=== PATIENT | female | born 1950 | race American Indian/Alaskan Native ===

== ENCOUNTER 2016-10-16 10:11 | Day surgery (SDC) | payer MEDICARE ==
[2016-10-16 10:22] VITALS: BMI 34.0
[2016-10-16 10:51] LABS: ADD MANUAL DIFF? NO
[2016-10-16 10:59] LABS: BASO # 0.02 K/mm3 (0.0-2.0); BASO % 0.3 % (0.0-3.0); EOS # 0.1 (0.0-0.7); EOS % 1.4 % (1.5-5.0); GRAN # 4.09 (1.4-6.5); GRAN % 62.2 % (50.0-68.0); HEMATOCRIT 40.6 % (36.0-48.0); LYMPH # 1.9 (1.2-3.4); LYMPH % 29.3 % (22.0-35.0); MEAN CELL VOLUME 94.6 fL (80.0-105.0); MEAN CORPUSCULAR HEMOGLOBIN 31.5 pg (25.0-35.0); MEAN CORPUSCULAR HGB CONC 33.3 g/dl (31.0-37.0); MEAN PLATELET VOLUME 9.8 fl (7.0-11.0); MONO # 0.5 (0.1-0.6); MONO % 6.8 % (1.0-6.0); PLATELET COUNT 221 10^3/uL (120.0-450.0); RED CELL DISTRIBUTION WIDTH 14.1 % (11.5-14.5); WHITE BLOOD COUNT 6.6 10^3/ul (4.5-11.0)
[2016-10-16 11:05] LABS: CALCIUM 9.6 mg/dL (8.4-10.5); INR 1.06 (0.93-1.08); PARTIAL THROMBOPLASTIN TIME 25.2 Seconds (23.7-30.8); POTASSIUM 5.1 mmol/L (3.6-5.0)
[2016-10-16] MEDS ORDERED: Lidocaine 2% Inj (20ml) ONE (11:37)
[2016-10-16] MEDS ORDERED: Nitroglycerin 50mg in D5W 50 MG/250 ML BOTTLE IV ONE (11:38)
[2016-10-16] MEDS ORDERED: Iodixanol 320 mg/ml 150 ml Bottle IV ONE ×2 (11:38→12:24)
[2016-10-16] MEDS ORDERED: Midazolam 2 MG/2 ML VIAL ONE (12:05)
[2016-10-16 13:48] VITALS: BP 115/50; PULSE 75; RESP 18; TEMP 97.8; O2SAT 99
--- NOTE | 2016-10-16 14:13 | VASCULAR ---
PROCEDURE: 1. Left upper extremity AV fistula angiogram 2. Left cephalic vein angioplasty HISTORY: End-stage renal disease. Malfunctioning AV access PHYSICIAN(S): Alex Alamo MD. TECHNIQUE: The relative risks and indications of the procedure were explained to the patient and consent obtained. The patient was placed supine on the angiography table and the left arm prepped and draped in usual sterile fashion. Conscious sedation and monitoring provided throughout the procedure by a nurse. The left arm AV fistula was punctured near the elbow in an antegrade direction with a micropuncture set. A 5 Namibian catheter was placed. An overlapping left upper extremity AV fistula angiogram was performed. Central venous imaging was obtained. Pressure was applied near the access site and reflux of the arterial anastomosis performed. A 6 Namibian sheath was placed at the puncture site. Exchange is made for 0.035 support wire. The proximal left cephalic vein was dilated with an 8 mm balloon. Balloon ruptured with spasm of the vessel. A prolonged inflation with a 7 mm balloon was performed. The sheath was removed and hemostasis obtained. FINDINGS: The patient's left brachial-cephalic fistula is patent. Mild pseudoaneurysms are noted proximally. The left cephalic vein is well developed. Collaterals are seen at the junction of the left cephalic vein and left subclavian vein. There is a web-like stenosis of the left cephalic vein. The left subclavian vein, left innominate vein, and SVC are widely patent. The arterial anastomosis is widely patent. IMPRESSION: 1. Web-like stenosis of the proximal left cephalic vein 2. Venous angioplasty of the left cephalic vein proximally. 3. Patent arterial anastomosis
== END 2016-10-16 15:00 | disposition home or self-care (01) ==
LOC: SDSVAS 10:11
PROVIDERS: ATTEND Radiology Vascular & Interventional Radiology
DX: T82.858A Stenosis of other vascular prosthetic devices, implants and grafts, initial encounter (principal); I12.0 Hypertensive chronic kidney disease with stage 5 chronic kidney disease or end stage renal disease; N18.6 End stage renal disease; E11.22 Type 2 diabetes mellitus with diabetic chronic kidney disease
CPT/HCPCS: 36415; 36902; 80048; 85025; 85610; 85730; 99152; C1725 ×2; C1760; C1769 ×2; C1894; J1644; J2250; J3010

== ENCOUNTER 2017-05-19 07:32 | Day surgery (SDC) | payer MEDICARE ==
[2017-05-19 08:32] VITALS: RESP 18
[2017-05-19 08:37] LABS: BASO # 0.02 K/mm3 (0.0-2.0); BASO % 0.3 % (0.0-3.0); EOS # 0.2 (0.0-0.7); EOS % 2.5 % (1.5-5.0); GRAN # 3.99 (1.4-6.5); GRAN % 65.4 % (50.0-68.0); LYMPH # 1.5 (1.2-3.4); LYMPH % 25.1 % (22.0-35.0); MEAN CELL VOLUME 93.8 fl (80.0-105.0); MEAN CORPUSCULAR HEMOGLOBIN 30.4 pg (25.0-35.0); MEAN CORPUSCULAR HGB CONC 32.4 g/dl (31.0-37.0); MEAN PLATELET VOLUME 10.5 fl (7.0-11.0); MONO # 0.4 (0.1-0.6); MONO % 6.7 % (1.0-6.0); RED CELL DISTRIBUTION WIDTH 14.1 % (11.5-14.5); WHITE BLOOD COUNT 6.1 10^3/ul (4.5-11.0)
[2017-05-19 08:46] LABS: INR 1.01 (0.93-1.08); PARTIAL THROMBOPLASTIN TIME 31.3 Seconds (25.1-36.5)
[2017-05-19 09:07] LABS: CALCIUM 9.1 mg/dL (8.4-10.5); POTASSIUM 4.7 mmol/L (3.6-5.0)
[2017-05-19] MEDS ORDERED: Iodixanol 320 mg/ml 150 ml Bottle IV ONE (09:30)
[2017-05-19] MEDS ORDERED: Lidocaine 2% Inj (20ml) ONE (09:30)
[2017-05-19] MEDS ORDERED: Nitroglycerin 50mg in D5W 50 MG/250 ML BOTTLE IV ONE (09:30)
[2017-05-19] MEDS ORDERED: Midazolam 2 MG/2 ML VIAL ONE (09:58)
[2017-05-19 11:32] VITALS: TEMP 97.3
[2017-05-19] MEDS ORDERED: Oxycodone/Acetaminophen 5/325 mg Tab PO PRN (11:40)
[2017-05-19 12:00] VITALS: BP 105/47; PULSE 68; O2SAT 95
--- NOTE | 2017-05-19 19:13 | VASCULAR ---
PROCEDURE: 1. Left upper extremity AV fistula angiogram 2. Attempted left cephalic vein angioplasty HISTORY: End-stage renal disease. Malfunctioning AV access PHYSICIAN(S): Alex Alamo MD. TECHNIQUE: The relative risks and indications of the procedure were explained to the patient and consent obtained. The patient was placed supine on the angiography table and the left arm prepped and draped in usual sterile fashion. Conscious sedation and monitoring provided throughout the procedure by a nurse. The left arm AV fistula was punctured near the elbow in an antegrade direction with a micropuncture set. A 5 Beninese catheter was placed. An overlapping left upper extremity AV fistula angiogram was performed. Central venous imaging was obtained. Pressure was applied near the access site and reflux of the arterial anastomosis performed. Exchange was made for a 6 Beninese sheath at the puncture site. The occluded segment of the left cephalic vein proximally was crossed with an angled glidewire and 5 Beninese catheter. Exchange is made for 0.035 support wire. The occluded left cephalic branch was dilated with 7 and 8 mm balloons. A refractory focal segment was encounter. This was subsequently dilated with 7 mm cutting balloon, which was unsuccessful in over common is stenosis. Next an 8 mm noncompliant high-pressure balloon was utilized. The focal stenosis would not successfully dilated 30 atmospheres. Completion angiograms were obtained. The catheter was removed and hemostasis obtained with a purse string suture. FINDINGS: The patient's left brachial - cephalic fistula is patent. 2 stable pseudoaneurysms are noted in the proximal fistula. Due to tortuosity, the anastomosis is not seen in tangent. The left cephalic vein is patent in the forearm. The left cephalic vein above the elbow is patent to the axilla. There is a bifid insertion of the left cephalic vein which was previously dilated. One of the 2 insertions is occluded. The left axillary vein, left subclavian vein, left innominate vein, and SVC are patent. IMPRESSION: 1. Occluded bifid insertion of the left cephalic vein. 2. Unsuccessful attempt at angioplasty of the left cephalic vein insertion. This included 7 mm cutting balloon any noncompliant balloon dilated to 30 atmospheres. 3. The left upper extremity AV fistula is patent. It can continue to be utilized and hopefully the remaining cephalic insertion will continue to dilate
== END 2017-05-19 13:03 | disposition home or self-care (01) ==
LOC: SDSVAS 07:32
PROVIDERS: ATTEND Radiology Vascular & Interventional Radiology
DX: T82.41XA Breakdown (mechanical) of vascular dialysis catheter, initial encounter (principal); I12.0 Hypertensive chronic kidney disease with stage 5 chronic kidney disease or end stage renal disease; E11.22 Type 2 diabetes mellitus with diabetic chronic kidney disease; N18.6 End stage renal disease; E66.9 Obesity, unspecified; D64.9 Anemia, unspecified
CPT/HCPCS: 36415; 36902; 80048; 85025; 85610; 85730; 99152; 99153; C1725 ×3; C1769 ×3; C1894 ×2; J1644; J2250; J2405; J3010; J7030

== ENCOUNTER 2017-11-10 10:02 | Day surgery (SDC) | payer MEDICARE ==
[2017-11-10 10:34] VITALS: RESP 18
[2017-11-10] MEDS ORDERED: Lidocaine 2% Inj (20ml) ONE (10:49)
[2017-11-10] MEDS ORDERED: Iodixanol 320 mg/ml 150 ml Bottle IV ONE (10:50)
[2017-11-10 10:59] LABS: BASO # 0.02 K/mm3 (0.0-2.0); BASO % 0.3 % (0.0-3.0); EOS # 0.1 (0.0-0.7); EOS % 1.6 % (1.5-5.0); GRAN # 4.99 (1.4-6.5); GRAN % 67.9 % (50.0-68.0); LYMPH # 1.8 (1.2-3.4); LYMPH % 24.3 % (22.0-35.0); MEAN CELL VOLUME 92.3 fl (80.0-105.0); MEAN CORPUSCULAR HEMOGLOBIN 30.4 pg (25.0-35.0); MEAN CORPUSCULAR HGB CONC 32.9 g/dl (31.0-37.0); MEAN PLATELET VOLUME 9.4 fl (7.0-11.0); MONO # 0.4 (0.1-0.6); MONO % 5.9 % (1.0-6.0); RBC 4.28 10^6/uL (3.5-6.1); RED CELL DISTRIBUTION WIDTH 14.1 % (11.5-14.5); WHITE BLOOD COUNT 7.3 10^3/ul (4.5-11.0)
[2017-11-10] MEDS ORDERED: Midazolam 2 MG/2 ML VIAL ONE ×2 (11:00→11:23)
[2017-11-10 11:10] LABS: CALCIUM 7.6 mg/dL (8.4-10.5); INR 0.97 (0.93-1.08); PARTIAL THROMBOPLASTIN TIME 29.5 Seconds (25.1-36.5); PROTHROMBIN TIME 11.2 SECONDS (9.4-12.5)
[2017-11-10] MEDS ORDERED: Iodixanol 320 MG/ML 100 ML BOTTLE IV ONE (12:05)
[2017-11-10] MEDS ORDERED: Oxycodone/Acetaminophen 5/325 mg Tab PO PRN (12:51)
[2017-11-10 13:17] VITALS: TEMP 97.7
[2017-11-10] MEDS ORDERED: Oxycodone/Acetaminophen 5/325 mg Tab ONE (13:25)
[2017-11-10 13:42] VITALS: BP 123/65; PULSE 84; O2SAT 99
--- NOTE | 2017-11-10 19:26 | VASCULAR ---
PROCEDURE: 1. Left upper extremity AV fistula [place] 2. Central left cephalic vein angioplasty and stent graft placement HISTORY: End-stage renal disease. Malfunctioning AV access recurrent central left cephalic vein occlusion PHYSICIAN(S): Alex Alamo MD. TECHNIQUE: The relative risks and indications of the procedure were explained to the patient and consent obtained. The patient was placed supine on the angiography table and the left arm prepped and draped in usual sterile fashion. Conscious sedation and monitoring provided throughout the procedure by a nurse. The right arm AV fistula was punctured under ultrasound guidance near the elbow in an antegrade direction with a micropuncture set. A 5 Rwandan catheter was placed. An overlapping left upper extremity AV fistula angiogram was performed. Central venous imaging was obtained. This revealed a short segment occlusion of the central left cephalic vein. Exchange is made for a 9 Rwandan sheath. With some difficulty the 3 cm occlusion of the left cephalic vein centrally was crossed with the glidewire. 0.018 support wire was placed the IVC. The left cephalic vein centrally was dilated with a 6 mm balloon. A refractory stenosis was present. Subsequent is 7 mm cutting balloon was used. Three inflations were required. Antegrade flow was re-established with a pseudoaneurysm present. A a long inflation with a 10 mm balloon was performed. The pseudoaneurysm still present. Subsequently an 8 mm x 4 cm fluency stent graft was deployed in the left cephalic vein centrally. This was dilated with a 10 mm balloon. Completion angiograms were obtained. The patient tolerated the procedure well. Hemostasis was obtained with a purse string suture. FINDINGS: The patient's left brachial - cephalic fistula is well developed. Once again there is a 3 cm occlusion of the left cephalic vein centrally. This was difficult to cross it was refractory to dilatation, requiring a cutting balloon. There was a pseudoaneurysm present after cutting balloon placement. Subsequently a in 8 mm fluency stent graft was placed. The patient tolerated the procedure well. IMPRESSION: 1. Recurrent occlusion of the left cephalic vein centrally. 2. Successful dilatation of the refractory occlusion with cutting balloon and subsequent stent graft placement.
== END 2017-11-10 14:30 | disposition home or self-care (01) ==
LOC: SDSVAS 10:02
PROVIDERS: ATTEND Radiology Vascular & Interventional Radiology
DX: T82.318A Breakdown (mechanical) of other vascular grafts, initial encounter (principal); I12.0 Hypertensive chronic kidney disease with stage 5 chronic kidney disease or end stage renal disease; N18.6 End stage renal disease; I25.10 Atherosclerotic heart disease of native coronary artery without angina pectoris; Y83.2 Surgical operation with anastomosis, bypass or graft as the cause of abnormal reaction of the patient, or of later complication, without mention of misadventure at the time of the procedure
CPT/HCPCS: 36415; 36903; 80048; 85025; 85610; 85730; 99152; 99153; C1725 ×4; C1760; C1769 ×3; C1894; J1644; J2250; J2405; J3010; Q9967

== ENCOUNTER 2018-05-14 19:54 | Emergency (ER) | payer MEDICARE ==
[2018-05-14 20:05] VITALS: TEMP 97.9; BMI 34.8
--- NOTE | 2018-05-14 20:40 | ED PDOC ---
Arrival/HPI - General Chief Complaint: Weakness/Neurological Deficit Time Seen by Provider: 05/14/18 20:08 Historian: Patient - History of Present Illness Narrative History of Present Illness (Text): 05/14/18 20:40 A 68 year old female, whose past medical history includes Renal disease (on dialysis Thursday, Thursday and Thursday), presents to the emergency department complaining of generalized weakness. Patient reports she had her last dialysis session this morning, however during her session the fistula stopped working and had to be sent out to have it fixed. Afterwards, patient returned and had dialysis completed this morning. However, later on, patient had 2 episodes of vomiting and began experiencing generalized weakness. Now while here in the ER, patient has no complaints at this time except for feeling slightly nauseated. Patient denies any fever, abdominal pain, chest pain, dyspnea on exertion, syncope, dizziness, or any other complaints at this time. PMD: Dr. Anish Owens Past Medical History - Provider Review Nursing Documentation Reviewed: Yes - Infectious Disease Hx of Infectious Diseases: None - Reproductive Menopause: No - Cardiac Hx Pacemaker: No - Pulmonary Hx Respiratory Disorders: No - Neurological Hx Paralysis: No - HEENT Hx HEENT Disorder: No - Renal Hx Dialysis: Yes (mwf) Date of Last Dialysis Treatment: 08/22/16 Hx Renal Failure: Yes Other/Comment: Left Av shunt - Endocrine/Metabolic Hx Endocrine Disorders: Yes Hx Diabetes Mellitus Type 2: Yes - Hematological/Oncological Hx Blood Transfusions: Yes (FEW ON HD(LAST APPROX 10/2014)) Hx Blood Transfusion Reaction: No - Integumentary Hx Dermatological Disorder: No - Musculoskeletal/Rheumatological Hx Musculoskeletal Disorders: No - Gastrointestinal Hx Gastrointestinal Disorders: No - Genitourinary/Gynecological Hx Genitourinary Disorders: Yes Other/Comment: pt states she previously urine retetion, has been resolved - Psychiatric Hx Emotional Abuse: No Hx Physical Abuse: No Hx Substance Use: No - Surgical History Hx Section: Yes - Anesthesia Hx Anesthesia Reactions: No Hx Malignant Hyperthermia: No - Suicidal Assessment Feels Threatened In Home Enviroment: No Family/Social History - Physician Review Nursing Documentation Reviewed: Yes Family/Social History: No Known Family HX Smoking Status: Never Smoked Hx Alcohol Use: No Hx Substance Use: No Allergies/Home Meds Allergies/Adverse Reactions: Allergies No Known Allergies Allergy (Verified 08/22/16 13:23) Home Medications: Home Meds Medication Instructions Recorded Confirmed Calcium Acetate [Phoslo] 667 mg PO ACTID 10/16/16 11/10/17 Aspirin [Ecotrin] 81 mg PO DAILY 05/19/17 11/10/17 Multivitamin [Daily Rashida] 1 tab PO DAILY 05/19/17 11/10/17 glyBURIDE [Glyburide] 5 mg PO DAILY 05/19/17 11/10/17 RX: Simvastatin 10 mg PO DAILY 11/04/17 11/10/17 Review of Systems - Physician Review All systems were reviewed & negative as marked: Yes - Review of Systems Constitutional: absent: Fevers Cardiovascular: absent: Chest Pain, RAINES, Syncope Gastrointestinal: Nausea (slightly), Vomiting (2 episodes this morning). absent: Abdominal Pain Neurological: absent: Dizziness Physical Exam Vital Signs Reviewed: Yes Vital Signs Temp Pulse Resp BP Pulse Ox 05/14/18 20:05 97.9 F 89 18 113/57 L 95 Temperature: Afebrile Blood Pressure: Normal Pulse: Regular Respiratory Rate: Normal Appearance: Positive for: Well-Appearing, Non-Toxic, Comfortable Pain Distress: None Mental Status: Positive for: Alert and Oriented X 3 - Systems Exam Head: Present: Atraumatic, Normocephalic Pupils: Present: PERRL Extroacular Muscles: Present: EOMI Conjunctiva: Present: Normal Mouth: Present: Moist Mucous Membranes Neck: Present: Normal Range of Motion Respiratory/Chest: Present: Clear to Auscultation, Good Air Exchange. No: Respiratory Distress, Accessory Muscle Use Cardiovascular: Present: Regular Rate and Rhythm, Normal S1, S2. No: Murmurs Abdomen: No: Tenderness, Distention, Peritoneal Signs Back: Present: Normal Inspection Upper Extremity: Present: Normal Inspection, Other (AV fistula to left arm). No: Cyanosis, Edema Lower Extremity: Present: Normal Inspection. No: Edema Neurological: Present: GCS=15, CN II-XII Intact, Speech Normal Skin: Present: Warm, Dry, Normal Color. No: Rashes Psychiatric: Present: Alert, Oriented x 3, Normal Insight, Normal Concentration Medical Decision Making ED Course and Treatment: 05/14/18 20:43 Impression: 68 year old female currently having no complaints except for experiencing some nausea. Plan: -- EKG -- Labs -- Zofran -- Reassess and disposition Prior Visits: Notes and results from previous visits were reviewed. Patient was last seen in the emergency department on 08/22/2016 for syncopal episode. Patient was discharged home. Progress Notes: 05/14/18 20:21 EKG: Ordered, reviewed, and independently interpreted the EKG. Rate : 79 BPM Rhythm : NSR Interpretation : Normal access, normal intervals, no ST elevations. Comparison : No previous EKG for comparison. Patient re-evaluated multiple times, each time had no complaints and stated that she felt better. No vomiting while in the ED. BP improved to 105 systolic with no intervention. Patient AAOx3, stable for discharge home. - Lab Interpretations I have reviewed the lab results: Yes - Medication Orders Current Medication Orders: Discontinued Medications Ondansetron HCl (Zofran Inj) 4 mg IM STAT STA Stop: 05/14/18 20:20 - Scribe Statement The provider has reviewed the documentation as recorded by the Arabella Cardenas Provider Scribe Attestation: All medical record entries made by the Scribe were at my direction and personally dictated by me. I have reviewed the chart and agree that the record accurately reflects my personal performance of the history, physical exam, medical decision making, and the department course for this patient. I have also personally directed, reviewed, and agree with the discharge instructions and disposition. Disposition/Present on Arrival - Present on Arrival Any Indicators Present on Arrival: No History of DVT/PE: No History of Uncontrolled Diabetes: No Urinary Catheter: No History of Decub. Ulcer: No History Surgical Site Infection Following: None - Disposition Have Diagnosis and Disposition been Completed?: Yes Diagnosis: Vomiting, Transient hypotension Disposition: HOME/ ROUTINE Disposition Time: 22:15 Condition: STABLE Discharge Instructions (ExitCare): Nausea and Vomiting, Adult (DC), Low Blood Pressure (DC) Additional Instructions: CONNOR MARKHAM, thank you for letting us take care of you today. Your provider was Jhoana Lovelace MD and you were treated for GENERAL WEAKNESS; NAUSEA. The emergency medical care you received today was directed at your acute symptoms. If you were prescribed any medication, please fill it and take as directed. It may take several days for your symptoms to resolve. Return to the Emergency Department if your symptoms worsen, do not improve, or if you have any other problems. Please contact your doctor or call one of the physicians/clinics you have been referred to that are listed on the Patient Visit Information form that is included in your discharge packet. Bring any paperwork you were given at discharge with you along with any medications you are taking to your follow up visit. Our treatment cannot replace ongoing medical care by a primary care provider outside of the emergency department. Thank you for allowing the [facility] team to be part of your care today. If you had an X-Ray or CT scan: A Radiologist will review the ED reading if any change in treatment is needed we will contact you. If you had a blood, urine, or wound culture: It will take several days for the results, if any change in treatment is needed we will contact you. If you had an STI test: It will take 48 hours for the results. Please call after 1 week if you have not heard back. Referrals: Anish Owens MD [Primary Care Provider] - Follow up with primary Forms: [employer] (Afghan)
[2018-05-14 20:44] LABS: BASO # 0.01 K/mm3 (0.0-2.0); BASO % 0.1 % (0.0-3.0); EOS % 0.5 % (1.5-5.0); GRAN # 6.62 (1.4-6.5); GRAN % 85.4 % (50.0-68.0); HEMOGLOBIN 13.1 g/dL (12.0-16.0); LYMPH # 0.8 (1.2-3.4); LYMPH % 9.9 % (22.0-35.0); MEAN CELL VOLUME 92.1 fl (80.0-105.0); MEAN CORPUSCULAR HEMOGLOBIN 30.3 pg (25.0-35.0); MEAN CORPUSCULAR HGB CONC 32.8 g/dl (31.0-37.0); MEAN PLATELET VOLUME 9.7 fl (7.0-11.0); MONO # 0.3 (0.1-0.6); MONO % 4.1 % (1.0-6.0); RBC 4.33 10^6/uL (3.5-6.1); RED CELL DISTRIBUTION WIDTH 14.7 % (11.5-14.5); WHITE BLOOD COUNT 7.8 10^3/uL (4.5-11.0)
[2018-05-14 20:53] VITALS: RESP 18; O2SAT 100
[2018-05-14 20:53] LABS: ALB/GLOB RATIO 1.3 (1.1-1.8); ALBUMIN 3.7 g/dL (3.0-4.8); CALCIUM 8.7 mg/dL (8.4-10.5)
[2018-05-14 22:26] VITALS: BP 105/59; PULSE 80
--- NOTE | 2018-05-15 07:54 | CARD ---
APPROVED REPORT Date of service: 05/14/2018 EKG Measurement Heart [id number] <Conclusion> Normal sinus rhythm Prolonged QTc and Low voltage c/w ECG 08/22/16
== END 2018-05-14 22:39 | disposition home or self-care (01) ==
LOC: ED 19:54
DX: I95.9 Hypotension, unspecified (principal); R11.10 Vomiting, unspecified; E11.22 Type 2 diabetes mellitus with diabetic chronic kidney disease; N18.6 End stage renal disease; Z99.2 Dependence on renal dialysis
CPT/HCPCS: 80053; 85025; 93005; 96372; 99285; J2405

== ENCOUNTER 2018-06-18 10:16 | Emergency (ER) | payer MEDICARE ==
[2018-06-18 10:17] VITALS: BMI 34.8
[2018-06-18 10:26] VITALS: RESP 18
--- NOTE | 2018-06-18 12:26 | ED PDOC ---
Arrival/HPI - General Chief Complaint: Lower Extremity Problem/Injury Time Seen by Provider: 06/18/18 10:27 Historian: Patient - History of Present Illness Narrative History of Present Illness (Text): 06/18/18 11:04 68 year old female with past medical history of Renal disease (on dialysis Thursday, Thursday and Thursday), presents to the Emergency department complaining of left sided hip pain radiating into left thigh since two weeks. Patient informs taking tylenol with some improvement in pain. Patient states that over the past week, pain has worsened with difficulty going up and down stairs. Patient states yesterday her sons needed to lift her legs to help her up the stairs. Patient denies any recent trauma or injury to the hip as well as numbness, weakness, or tingling to the extremities. Patient denies any fevers, chills, headache, dizziness, chest pain, shortness of breath, dyspnea on exertion, cough, abdominal pain, nausea, vomiting, diarrhea, back pain, neck pain, urinary symptoms, or any other complaints. Time/Duration: Other (2 weeks) Symptom Onset: Gradual Symptom Course: Unchanged Activities at Onset: Light Context: Home Past Medical History - Provider Review Nursing Documentation Reviewed: Yes - Infectious Disease Hx of Infectious Diseases: None - Reproductive Menopause: Yes - Cardiac Hx Hypertension: Yes Hx Pacemaker: No - Pulmonary Hx Respiratory Disorders: No - Neurological Hx Paralysis: No - HEENT Hx HEENT Disorder: No - Renal Hx Dialysis: Yes (mwf) Date of Last Dialysis Treatment: 06/18/18 Hx Renal Failure: Yes Other/Comment: Left Av shunt - Endocrine/Metabolic Hx Endocrine Disorders: Yes Hx Diabetes Mellitus Type 2: Yes - Hematological/Oncological Hx Blood Transfusions: Yes (FEW ON HD(LAST APPROX 10/2014)) Hx Blood Transfusion Reaction: No - Integumentary Hx Dermatological Disorder: No - Musculoskeletal/Rheumatological Hx Musculoskeletal Disorders: No - Gastrointestinal Hx Gastrointestinal Disorders: No - Genitourinary/Gynecological Hx Genitourinary Disorders: Yes Other/Comment: pt states she previously urine retetion, has been resolved - Psychiatric Hx Emotional Abuse: No Hx Physical Abuse: No Hx Substance Use: No - Surgical History Hx Section: Yes - Anesthesia Hx Anesthesia Reactions: No Hx Malignant Hyperthermia: No - Suicidal Assessment Feels Threatened In Home Enviroment: No Family/Social History - Physician Review Nursing Documentation Reviewed: Yes Family/Social History: Unknown Family HX Smoking Status: Never Smoked Hx Alcohol Use: No Hx Substance Use: No Allergies/Home Meds Allergies/Adverse Reactions: Allergies No Known Allergies Allergy (Verified 06/18/18 10:22) Home Medications: Home Meds Medication Instructions Recorded Confirmed Calcium Acetate [Phoslo] 667 mg PO ACTID 10/16/16 06/18/18 Aspirin [Ecotrin] 81 mg PO DAILY 05/19/17 06/18/18 Multivitamin [Daily Rashida] 1 tab PO DAILY 05/19/17 06/18/18 glyBURIDE [Glyburide] 5 mg PO DAILY 05/19/17 06/18/18 Simvastatin 10 mg PO DAILY 11/04/17 06/18/18 Celecoxib [celeBREX] 100 mg PO DAILY PRN 06/18/18 06/18/18 Review of Systems - Physician Review All systems were reviewed & negative as marked: Yes - Review of Systems Constitutional: absent: Fevers Respiratory: absent: Cough Cardiovascular: absent: Chest Pain Gastrointestinal: absent: Abdominal Pain Genitourinary Female: absent: Urine Output Changes Musculoskeletal: Arthralgias (left sided hip pain). absent: Back Pain, Neck Pain Skin: absent: Rash Neurological: absent: Headache, Dizziness Physical Exam Vital Signs Reviewed: Yes Vital Signs Temp Pulse Resp BP Pulse Ox 06/18/18 10:17 98.9 F 95 H 18 115/51 L 98 Temperature: Afebrile Blood Pressure: Normal Pulse: Regular Respiratory Rate: Normal Appearance: Positive for: Well-Appearing, Non-Toxic, Comfortable Pain Distress: None Mental Status: Positive for: Alert and Oriented X 3 - Systems Exam Head: Present: Atraumatic, Normocephalic Pupils: Present: PERRL Extroacular Muscles: Present: EOMI Conjunctiva: Present: Normal Neck: Present: Normal Range of Motion Respiratory/Chest: Present: Clear to Auscultation, Good Air Exchange. No: Respiratory Distress, Accessory Muscle Use Cardiovascular: Present: Regular Rate and Rhythm, Normal S1, S2. No: Murmurs Abdomen: No: Tenderness, Distention, Peritoneal Signs Back: Present: Normal Inspection Upper Extremity: Present: Other (fistula noted in left forearm ). No: Cyanosis, Edema Lower Extremity: Present: NORMAL PULSES, Neurovascularly Intact, Other (tenderness over lateral apsect of left hip with decreased range of motion due to pain, pelvis stable). No: Edema, CALF TENDERNESS, Erythema Neurological: Present: GCS=15, CN II-XII Intact, Speech Normal Skin: Present: Warm, Dry, Normal Color. No: Rashes Psychiatric: Present: Alert, Oriented x 3, Normal Insight, Normal Concentration Medical Decision Making ED Course and Treatment: 06/18/18 11:04 Impression: 68 year old female presents to the Emergency department with left sided hip pain radiating to left thigh. Plan: -- Tylenol -- X-ray of left hip -- US of LE -- Reassess and disposition Prior Visits: Notes and results from previous visits were reviewed. Progress Notes: xray: IMPRESSION: Degenerative changes in both hips left greater than right. No acute findings ct hip: FINDINGS: There is no evidence of hip fracture. There is no significant joint space narrowing. There is no joint effusion visualized and no evidence of hematoma or edema in the adjacent muscles. IMPRESSION: Negative study pt seen and evaluated by dr. olvera at beside. will d/c home to f/u with pmd and dr. olvera impression; hip pain tylenol every 4 hours as needed for pain use walker for assistance follow up with the orthopedist within the next 2 days. follow up with the primary care physician within the next 2 days. return if symptoms worsen,persist or if new symptoms develop. - RAD Interpretation Radiology Orders: 06/18/18 11:04 Hip Left [HIP MIN 2V W/ PELVIS LT] [RAD] Stat DUPLEX LOWER EXTRM VEIN LEFT [US] Stat - Medication Orders Current Medication Orders: Discontinued Medications Acetaminophen (Tylenol 325mg Tab) 975 mg PO STAT STA Stop: 06/18/18 11:05 Last Admin: 06/18/18 12:10 Dose: 975 mg MAR Pain/Vitals Document 06/18/18 12:10 [facility] (Rec: 06/18/18 12:10 [id number]) Pain Reassessment Is This A Pain ReAssessment? No - Scribe Statement The provider has reviewed the documentation as recorded by the Scribe Anitra giron with Shosh[facility] All medical record entries made by the Scribe were at my direction and personally dictated by me. I have reviewed the chart and agree that the record accurately reflects my personal performance of the history, physical exam, medical decision making, and the department course for this patient. I have also personally directed, reviewed, and agree with the discharge instructions and disposition. Disposition/Present on Arrival - Present on Arrival Any Indicators Present on Arrival: No History of DVT/PE: No History of Uncontrolled Diabetes: No Urinary Catheter: No History of Decub. Ulcer: No History Surgical Site Infection Following: None - Disposition Have Diagnosis and Disposition been Completed?: Yes Diagnosis: Hip pain Disposition: HOME/ ROUTINE Disposition Time: 12:00 Patient Plan: Discharge Condition: GOOD Discharge Instructions (ExitCare): Hip Pain (DC) Additional Instructions: tylenol every 4 hours as needed for pain use walker for assistance follow up with the orthopedist within the next 2 days. follow up with the primary care physician within the next 2 days. return if symptoms worsen,persist or if new symptoms develop. Referrals: Emanuel Olvera DO [Staff Provider] - Follow up with primary Crystal Evans MD [Medical Doctor] - Follow up with primary [employer] [Outside] - Follow up with primary Forms: [employer] ([place]an)
--- NOTE | 2018-06-18 12:31 | RAD ---
PROCEDURE: Left Hip X-ray Radiographs. HISTORY: Left hip Pain. No history of recent/ related trauma provided COMPARISON: None. FINDINGS: BONES: Normal. No fracture. JOINTS: Degenerative changes bilaterally left greater than right. SOFT TISSUES: Normal. OTHER FINDINGS: None. IMPRESSION: Degenerative changes in both hips left greater than right. No acute findings
--- NOTE | 2018-06-18 13:45 | CT ---
Date of service: 06/18/2018 PROCEDURE: CT of the left hip HISTORY: left hip pain r/o fx COMPARISON: TECHNIQUE: Radiation dose: Total exam DLP = 1103.7 mGy-cm. This CT exam was performed using one or more of the following dose reduction techniques: Automated exposure control, adjustment of the mA and/or kV according to patient size, and/or use of iterative reconstruction technique. FINDINGS: There is no evidence of hip fracture. There is no significant joint space narrowing. There is no joint effusion visualized and no evidence of hematoma or edema in the adjacent muscles. IMPRESSION: Negative study
[2018-06-18 14:37] VITALS: BP 114/57; PULSE 91; TEMP 98; O2SAT 99
--- NOTE | 2018-06-18 22:50 | US ---
PROCEDURE: Left lower extremity venous US HISTORY: Leg pain and swelling. Evaluate for DVT. PHYSICIAN(S): Alex Alamo MD. TECHNIQUE: Duplex sonography and color-flow Doppler with graded compression were used to evaluate the deep venous system of the left lower extremity. The exam is limited by body habitus and edema. FINDINGS: The visualized deep venous system of the left lower extremity is sonographically normal and compressible. Normal wave forms and augmentation are seen. There is no sonographic evidence for deep venous thrombosis in the visualized segments of the left lower extremity. IMPRESSION: 1. No sonographic evidence for deep venous thrombosis in the visualized segments of the left lower extremity.
== END 2018-06-18 14:37 | disposition home or self-care (01) ==
LOC: ED 10:16
DX: M25.552 Pain in left hip (principal); E11.9 Type 2 diabetes mellitus without complications; I10 Essential (primary) hypertension

== ENCOUNTER 2018-10-19 08:53 | Outpatient (CLI) | payer MEDICARE | END 2018-10-19 08:54 | disposition home or self-care (01) | LOC: RAD 08:53 ==